=== PATIENT | female | born 1960 | race Caucasian/White ===

== ENCOUNTER 2022-11-16 09:33 | Outpatient (CLI) | payer BC, SELFPAY ==
--- NOTE | ~2022-11-16 | XR_ITS ---
AP view of the pelvis and AP and lateral views of the right hip Clinical history: Pain Findings: No acute fracture or dislocation is seen. Osseous alignment is anatomic. Bilateral hip and SI joint spaces are preserved. Possible loose body or other soft tissue mineralization projecting adj acent to the superolateral acetabular margin.. Impression: No acute fracture or dislocation. Possible loose body or other soft tissue mineralization projecting adjacent to the superolateral righ t acetabular margin. Reviewed, dictated and finalized at location M. Impression: No acute fracture or dislocation. Possible loose body or other soft tissue mineralization projecting adjacent to the superolateral right acetabular margin.
== END 2022-11-16 09:34 | disposition home or self-care (01) ==
PROVIDERS: PCP Family Medicine; Visit Provider Orthopaedic Surgery
DX: M25.551 Pain in right hip (principal)
CPT/HCPCS: 73502

== ENCOUNTER → 2022-11-25 07:52 | Outpatient (CLI) | payer BC, SELFPAY ==
--- NOTE | ~2022-11-25 | MR_ITS ---
MRI of the right hip Clinical history: Pain, labral tear, gluteus medius tear Technique: Coronal T1-weighted, T2-weighted, and proton-density fat-sat images, and axial T1-weighted and proton-density fat-sat images were acquired through the pelvis. Coronal T2-weighted images and c oronal, axial, and sagittal proton-density fat-sat images were acquired through the right hip. Findings: There is no fracture, avascular necrosis, or transient osteoporosis of either hip. Bone mar row signals the proximal femora and visualized pelvic bones are unremarkable. There is moderate to hi gh-grade diffuse chondromalacia of the right hip joint. There is mild chondromalacia the left hip chencho nt. No joint effusion evident. Probable small tear of the anterior right acetabular labrum present. There is moderate to advanced tendinosis of the distal right gluteus minimus tendon. Remaining muscul ature and tendons appear intact. No yan bursitis evident. IMPRESSION: Mild to moderate degenerative change of the right hip joint. Small tear of the anterior right acetabulum. Moderate to advanced tendinosis of the distal right gluteus minimus tendon. Reviewed, dictated and finalized at location .
== END ==
PROVIDERS: PCP Family Medicine; Visit Provider Orthopaedic Surgery
DX: S73.191A Other sprain of right hip, initial encounter (principal); X58.XXXA Exposure to other specified factors, initial encounter
CPT/HCPCS: 73721